=== PATIENT | female | born 1985 | race Caucasian/White ===

== ENCOUNTER → 2016-07-29 | Outpatient (CLI) | payer BC ==
[2016-07-29 09:14] LABS: CH 28.2; CHCM 32.7; HCT 38.8 % (34.0-46.0); HDW 2.53; HGB 12.4 gm/dL (11.4-16.0); MCH 27.8 pg (25.0-35.0); MCV 86.9 fL (80.0-100.0); Mean Platelet Volume 7.5; RBC 4.47 m/uL (3.80-5.40); RDW 13.2 % (11.5-15.5); WBC 6.7 k/uL (3.8-10.6)
[2016-07-29 09:48] LABS: Glucose 57 mg/dL (74-99); Non-African American GFR(MDRD) >60 (>60 ml/min/1.73 sqM)
[2016-07-29 10:18] LABS: Hepatitis B Surface Ag Index 0.08
[2016-07-30 07:44] LABS: HIV-1/HIV-2 Ab Screen NONREAC (NON REAC)
== END ==
LOC: LABWHC1 08:45
PROVIDERS: ATTEND Obstetrics & Gynecology
DX: O26.811 Pregnancy related exhaustion and fatigue, first trimester (principal); Z3A.00 Weeks of gestation of pregnancy not specified
CPT/HCPCS: 36415; 82565; 82947; 85027; 86762; 86780; 86850; 86900; 86901; 87340; 87389

== ENCOUNTER → 2016-12-08 | Outpatient (CLI) | payer SELFPAY ==
[2016-12-08 09:20] LABS: CHCM 33.1; HCT 35.7 % (34.0-46.0); HGB 11.9 gm/dL (11.4-16.0); MCH 28.4 pg (25.0-35.0); MCHC 33.4 g/dL (31.0-37.0); MCV 85.1 fL (80.0-100.0); RBC 4.19 m/uL (3.80-5.40); RDW 13.2 % (11.5-15.5); WBC 7.5 k/uL (3.8-10.6)
== END | disposition home or self-care (01) ==
LOC: LABWHC1 07:48
PROVIDERS: ATTEND Obstetrics & Gynecology
DX: Z34.82 Encounter for supervision of other normal pregnancy, second trimester (principal)
CPT/HCPCS: 36415; 82950; 85027

== ENCOUNTER 2017-02-01 09:40 | Outpatient (CLI) | payer BC, OTHER ==
--- NOTE | 2017-02-01 11:15 | US ---
EXAMINATION TYPE: US OB BPP wo non-stress DATE OF EXAM: 02/01/2017 COMPARISON: NONE CLINICAL HISTORY: non reactive NST, decreased movement, oligo. Non reactive NST at office and h ospital. Nurse states patient had ultrasound yesterday with oligohydramnios found. EXAM PERFORMED: Transabdominal (TA) BPP PARAMETERS: PRESENTATION: Vertex HEART RATE: 144bpm RHYTHM: Normal TEGAN: 8.95 cm DIAPHRAGM IMAGED: yes BPP SCORIN. Breathin (1 episode of breathing of 30 second duration in 30 minutes of scanning time) 2. Movement: 2 (at least 2 discrete body movements in 30 minutes) 3. Tone: 2 (1 episode of active flexion/extension of limb) 4. TEGAN: 2 (TEGAN index > 5cm) TOTAL SCORE: 8 / 8 IMPRESSION: Biophysical profile score of 8/8 with TEGAN of 8.95 and heart rate of 1 44 bpm.
--- NOTE | 2017-04-19 07:48 | P.MSEPDOC ---
Presenting Problems - Arrival Data Date of Arrival on Unit: 02/01/17 Time of Arrival on Unit: 09:40 Mode of Transport: Portable Medical History - Information : 4 Para: 1 Term: 1 : 0 Abortions: Spontaneous or Elective: 2 Number of Living Children: 1 - Gestational Age Gestational Age by RICK (wks/days): 36 Weeks and 4 Days I agree with the RN Medical Screening Exam: Yes Risk & Benefit of care provided described in d/c instruction: Yes Diagnosis: DECREASED MOVEMENTS, THIRD TRIMESTER, FETUS 1
== END 2017-02-01 11:15 | disposition home or self-care (01) ==
LOC: FBPOP 09:40
PROVIDERS: ATTEND Obstetrics & Gynecology
DX: O36.8131 Decreased fetal movements, third trimester, fetus 1 (principal); Z3A.36 36 weeks gestation of pregnancy
CPT/HCPCS: 59025; 76819

== ENCOUNTER 2017-02-16 19:03 | Outpatient (CLI) | payer BC, OTHER ==
[2017-02-16 19:56] VITALS: BP 138/78; PULSE 84; RESP 16; TEMP 97.1
--- NOTE | 2017-02-20 08:35 | P.MSEPDOC ---
Presenting Problems - Arrival Data Date of Arrival on Unit: 02/16/17 Time of Arrival on Unit: 19:03 Mode of Transport: Ambulatory - Complaint OB-Reason for Admission/Chief Complaint: Possible Onset of Labor Comment: pt c/o contractions every 6 mins. Medical History - Information : 4 Para: 1 Term: 1 : 0 Abortions: Spontaneous or Elective: 2 Number of Living Children: 1 - Gestational Age Gestational Age by RICK (wks/days): 38 Weeks and 5 Days Review of Systems - Review of Systems Constitutional: No problems Breast: No problems ENT: No problems Cardiovascular: No problems Respiratory: No problems Gastrointestinal: No problems Genitourinary: No problems Musculoskeletal: No problems Neurological: No problems Skin: No problems Vital Signs - Temperature Temperature: 97.1 F Temperature Source: Temporal Artery Scan - Pulse Right Pulse Rate: 84 Pulse Assessment Method: Pulse Oximetry - Respirations Respiratory Rate: 16 Oxygen Delivery Method: Room Air O2 Sat by Pulse Oximetry: 99 - Blood Pressure Right Arm Blood Pressure: 138/78 Blood Pressure Mean: 98 Blood Pressure Source: Automatic Cuff Medical Screen Scoring (Pre) - Cervical Exam Dilation: 1-3 cm = 1 Effacement: More than 50% = 2 Membranes: Intact - Uterine Contractions Frequency: N/A Duration: N/A Intensity: N/A - Maternal Vital Signs Maternal Temperature: N/A Maternal Blood Pressure: N/A Signs of Preeclampsia: N/A Maternal Respirations: N/A - Maternal Trauma Maternal Trauma: N/A - Assessment Baseline FHR: 125 Heart Rate - NICHD Category: Category I (Normal) = 0 NST: Reactive Position: N/A Station: N/A - Total Score Total Score (Pre): 3 - Level of Risk Level of Risk: Low (0-5) Physician Notification (Pre) - Physician Notified Physician Notified Date: 02/16/17 Physician Notified Time: 19:32 Physician/Practitioner Notifed:: Dr. Deras Spoke With: Braeden Braun New Order Received: No - Notification Comment Comment: Dr. Deras cleared pt for discharge at this time or pt has option to wait an hour and be rechecked. If no cervical change, pt ok for discharge home at that time. Disposition - Disposition OB Disposition: Discharge to home Discharge Date: 02/16/17 Discharge Time: 20:30 I agree with the RN Medical Screening Exam: Yes Risk & Benefit of care provided described in d/c instruction: Yes Diagnosis: FALSE LABOR AT OR AFTER 37 COMPLETED WEEKS OF GESTATION
== END 2017-02-16 20:30 | disposition home or self-care (01) ==
LOC: FBPOP 19:03
PROVIDERS: ATTEND Obstetrics & Gynecology
DX: O47.1 False labor at or after 37 completed weeks of gestation (principal); Z3A.38 38 weeks gestation of pregnancy
CPT/HCPCS: 59025; 84112; G0463; 99213

== ENCOUNTER 2017-02-17 05:00 | Inpatient (IN) | payer BC, OTHER ==
[2017-02-17] MEDS ORDERED: LIDOCAINE 1% (PF) 10 MG/ML (30 ML SDV) SQ PRN (05:39)
[2017-02-17] MEDS ORDERED: TERBUTALINE 1 MG/ML VIAL SQ PRN (05:39)
[2017-02-17] MEDS ORDERED: OXYTOCIN 10 UNIT/ML 1 ML VIAL IM PRN (05:39)
[2017-02-17] MEDS ORDERED: METHYLERGONOVINE 0.2 MG/ML 1 ML AMP IM PRN (05:39)
[2017-02-17] MEDS ORDERED: CARBOPROST TROMETHAMINE 250 MCG/ML 1 ML AMP IM PRN (05:39)
[2017-02-17] MEDS ORDERED: LACTATED RINGERS 1,000 ML IV SCH (05:45)
[2017-02-17] MEDS ORDERED: OXYTOCIN 20 UNITS/1000 ML NS 1,000 ML IV SCH ×2 (05:45→10:25)
[2017-02-17 05:47] VITALS: BMI 29.5
[2017-02-17 06:11] LABS: Basophils % (A) 0 %; CH 27.9; CHCM 32.4; Eosinophils # (A) 0.1 k/uL (0-0.7); Eosinophils % (A) 1 %; HCT 37.7 % (34.0-46.0); HDW 2.87; Luc # (Auto) 0.12; Luc % (Auto) 2; Lymphocytes # (A) 1.4 k/uL (1.0-4.8); Lymphocytes % (A) 17 %; MCH 27.5 pg (25.0-35.0); MCHC 31.8 g/dL (31.0-37.0); MCV 86.6 fL (80.0-100.0); Monocytes # (A) 0.4 k/uL (0-1.0); Monocytes % (A) 5 %; Neutrophils # (A) 6.2 k/uL (1.3-7.7); Neutrophils % (A) 76 %; RBC 4.35 m/uL (3.80-5.40); RDW 13.8 % (11.5-15.5); WBC 8.1 k/uL (3.8-10.6); WBC (Perox) 8.27
[2017-02-17] MEDS ORDERED: BUTORPHANOL 1 MG/ML 1 ML VIAL IV PRN (06:49)
--- NOTE | 2017-02-17 08:48 | P.HPOB ---
History of Present Illness H&P Date: 02/17/17 Chief Complaint: contractions and spontaneous rupture of membranes this is a 32-year-old female 4 para 1 at 38-6/7 weeks with an estimated date of confinement of 02/24/2017, who presented to labor and delivery with spontaneous rupture membranes at approximate 3 AM with clear fluid noted. She has been feeling contractions since yesterday. care has been with Dr. Abarca and has been uncomplicated per patient. labs: Random glucose-57 Hepatitis B surface antigen-negative Hemoglobin-12.4 Syphilis antibody-negative Rubella-immune Blood type-O+ Antibody screen-negative HIV-nonreactive Obstetrical ultrasound-normal anatomy One hour Glucola-69 Group B streptococcus-negative Obstetrical history: . History of 2 elective terminations and one vaginal delivery at term. Review of Systems Constitutional: Denies chills, Denies fever Eyes: denies blurred vision, denies pain Cardiovascular: Denies chest pain, Denies shortness of breath Respiratory: Denies cough Gastrointestinal: Reports abdominal pain (contractions) Genitourinary: Reports pelvic pain, Reports Musculoskeletal: Reports low back pain Past Medical History Past Medical History: No Reported History History of Any Multi-Drug Resistant Organisms: None Reported Additional Past Surgical History / Comment(s): Breast implants. Past Anesthesia/Blood Transfusion Reactions: Previous Problems w/ Anesthesia Past Psychological History: No Psychological Hx Reported Smoking Status: Never smoker - Past Family History Father Family Medical History: Congestive Heart Failure (CHF) Medications and Allergies Home Medications Medication Instructions Recorded Confirmed Type Pnv No.95/Ferrous Fum/Folic AC 1 each PO DAILY 02/01/17 02/16/17 History [ Multivitamin Tablet] Allergies Allergy/AdvReac Type Severity Reaction Status Date / Time No Known Allergies Allergy Verified 02/17/17 05:38 Exam Osteopathic Statement: *. No significant issues noted on an osteopathic structural exam other than those noted in the History and Physical/Consult. - Vital Signs Vital signs: Vital Signs Temp Pulse Resp BP Pulse Ox 02/17/17 05:35 97.1 F L 69 18 130/70 100 Intake and Output 02/16/17 02/17/17 02/17/17 22:59 06:59 14:59 Other: # Voids 1 Weight 78.018 kg HEENT: Within normal limits Heart: Regular rate and rhythm Lungs: Clear to auscultation bilaterally Abdomen: Cervix: 4 cm 100% -1 station with spontaneous rupture membranes and positive amnisure heart tones: Reactive Contractions: Every 2 minutes Extremities: Negative Homans Results Result Diagrams: 02/17/17 05:35 Assessment and Plan (1) 38 weeks gestation of Current Visit: Yes Status: Acute Code(s): Z3A.38 - 38 WEEKS GESTATION OF SNOMED Code(s): 58407107 (2) Spontaneous rupture of membranes Current Visit: Yes Status: Acute Code(s): DLT5871 - SNOMED Code(s): 173688319 Plan: Admission for labor. Expectant management.
--- NOTE | 2017-02-17 08:49 | P.PROBDLV ---
Vaginal Delivery Note - . Vaginal Delivery Note: The patient progressed to complete dilation fairly rapidly after 1 dose of Stadol. She pushed for a couple pushes and 's head came to a crown. Infant's head delivered across the perineum followed by the anterior shoulder and then the remainder the . Nose and mouth were bulb suctioned after delivery and was placed on mother's abdomen. Cord was clamped and cut and infant was taken to warmer for evaluation. A viable female infant is noted with scores of 9 at 1 minute and 9 at 5 minutes. weight is pending at this time. Placenta delivered shortly thereafter, intact, with a three-vessel cord. Uterus contracted well after oxytocin was given and uterine massage was carried out. Inspection of the perineum revealed a small second- degree perineal laceration. This area was anesthetized with 1% lidocaine and then sutured with 3-0 Vicryl suture in a running locked fashion. Estimated blood loss is approximately 100 mL's. Both mother and infant are in stable condition.
[2017-02-17] MEDS ORDERED: ACETAMINOPHEN TAB 325 MG TAB PO PRN (10:25)
[2017-02-17] MEDS ORDERED: WITCH HAZEL 1 EACH MED..PAD TOPICAL PRN (10:25)
[2017-02-17] MEDS ORDERED: ZOLPIDEM 5 MG TAB PO PRN (10:25)
[2017-02-17] MEDS ORDERED: HYDROCORTISONE 2.5% RECTAL CREAM 30 GM TUBE RECTAL PRN (10:25)
[2017-02-17] MEDS ORDERED: SIMETHICONE 80 MG CHEWABLE PO PRN (10:25)
[2017-02-17] MEDS ORDERED: diphenhydrAMINE 25 MG CAP PO PRN (10:25)
[2017-02-17] MEDS ORDERED: diphenhydrAMINE 50 MG CAP PO PRN (10:25)
[2017-02-17] MEDS ORDERED: LANOLIN CREAM 5 GM TUBE TOPICAL PRN (10:25)
[2017-02-17] MEDS ORDERED: diphenhydrAMINE 50 MG/ML 1 ML VIAL IVP PRN ×2 (10:25)
[2017-02-17] MEDS ORDERED: BENZOCAINE/MENTHOL SPRAY 1 GM/SPRAY AEROSOL TOPICAL PRN (10:25)
[2017-02-17] MEDS: IBUPROFEN 600 MG TAB PO PRN ×3 (10:34→23:33)
[2017-02-17] MEDS: Acetaminophen-Codeine 300-30mg TAB PO PRN ×2 (20:39→21:15)
[2017-02-18] MEDS: SENNOSIDES-DOCUSATE SODIUM 1 EACH TAB PO SCH ×2 (00:34→11:42)
[2017-02-18] MEDS: Acetaminophen-Codeine 300-30mg TAB PO PRN (02:57)
--- NOTE | 2017-02-18 06:41 | P.PNOBGVD ---
Subjective - Subjective Patient reports: Reports appetite normal, Reports voiding normally, Reports pain well controlled, Reports ambulating normally : doing well Objective - Latest Vital Signs Latest vital signs: Vital Signs Temp Pulse Resp BP Pulse Ox 02/18/17 00:00 98.6 F 73 18 126/76 100 02/17/17 20:00 98.3 F 64 18 131/75 98 02/17/17 16:00 98.4 F 72 16 137/80 02/17/17 12:00 97.3 F L 80 16 133/70 02/17/17 10:38 76 18 124/73 02/17/17 10:08 83 18 123/82 02/17/17 09:38 81 18 122/74 02/17/17 09:23 97.0 F L 72 18 115/65 02/17/17 09:08 83 18 121/60 02/17/17 08:53 20 02/17/17 08:38 89 20 123/72 Intake and Output 02/17/17 02/17/17 02/18/17 14:59 22:59 06:59 Intake Total 1000 Balance 1000 Intake: Intake, IV Titration 1000 Amount Oxytocin 20 Units/1000 ml 1000 Ns 1,000 ml @ 1 MILLIUNIT/MIN 3 mls/hr IV .Q24H JAXON Rx#:[id number] Other: # Voids 1 2 1 - Exam Lungs: bilateral: normal Chest: Normal S1, Normal S2 Extremities: Present: normal Abdomen: Present: normal appearance, soft Uterus: Present: normal, firm Assessment and Plan (1) Normal labor and delivery Narrative/Plan: day #1. Patient is resting without complaints wishes to go home. Vital signs are stable and she is afebrile. Uterus is firm nontender. Patient is having normal lochia. My impression this is a normal course. Plan is to continue routine care and patient will be discharged home later this morning. Current Visit: Yes Status: Acute Code(s): O80 - ENCOUNTER FOR FULL-TERM UNCOMPLICATED DELIVERY SNOMED Code(s): 53859831
--- NOTE | 2017-02-18 06:44 | P.DS ---
Providers Date of admission: 02/17/17 05:28 Expected date of discharge: 02/18/17 Attending physician: Tj Abarca Primary care physician: Tj Abarca - Discharge Diagnosis(es) (1) Normal labor and delivery Current Visit: Yes Status: Acute Hospital Course: Please see dictated H&P and delivery note per Dr. Deras. Brief summary this is a 32-year-old 2 para [address] Garsia in active labor. Patient goes on to have a vaginal delivery viable female . On day #1 patient wishes to go home was felt be stable for discharge home follow up with Dr. Balderas in approximately 6 weeks. Procedures: Normal vaginal delivery. Patient Condition at Discharge: Good Plan - Discharge Summary New Discharge Prescriptions: New Acetaminophen-Codeine 300-30mg [Tylenol #3] 1 - 2 tab PO Q4H PRN #30 tablet PRN Reason: Pain Ibuprofen [Motrin] 600 mg PO Q6HR PRN #40 tab PRN Reason: Mild Pain Or Fever >= 100.5 No Action Pnv No.95/Ferrous Fum/Folic AC [ Multivitamin Tablet] 1 each PO DAILY Discharge Medication List Pnv No.95/Ferrous Fum/Folic AC [ Multivitamin Tablet] 1 each PO DAILY [History] Acetaminophen-Codeine 300-30mg [Tylenol #3] 1 - 2 tab PO Q4H PRN #30 tablet [Rx] Ibuprofen [Motrin] 600 mg PO Q6HR PRN #40 tab 02/17/17 [Rx] Follow up Appointment(s)/Referral(s): Tj Abarca DO [Primary Care Provider] - 6 Weeks Patient Instructions/Handouts: Vaginal Delivery (DC) Activity/Diet/Wound Care/Special Instructions: No intercourse or anything per vagina for 6 weeks. Please call if any fever, chills, excessive vaginal bleeding, and/or abdominal pain. Discharge Disposition: HOME SELF-CARE
[2017-02-18 07:12] LABS: Basophils % (A) 0 %; CH 27.6; CHCM 32.6; Eosinophils # (A) 0.1 k/uL (0-0.7); Eosinophils % (A) 1 %; HCT 34.9 % (34.0-46.0); HDW 2.86; HGB 11.2 gm/dL (11.4-16.0); Luc % (Auto) 1; Lymphocytes # (A) 2.3 k/uL (1.0-4.8); Lymphocytes % (A) 22 %; MCH 27.4 pg (25.0-35.0); MCHC 32.1 g/dL (31.0-37.0); MCV 85.4 fL (80.0-100.0); Mean Platelet Volume 7.3; Monocytes # (A) 0.5 k/uL (0-1.0); Monocytes % (A) 5 %; Neutrophils # (A) 7.4 k/uL (1.3-7.7); Neutrophils % (A) 71 %; RBC 4.08 m/uL (3.80-5.40); RDW 13.9 % (11.5-15.5); WBC 10.3 k/uL (3.8-10.6); WBC (Perox) 9.94
[2017-02-18] MEDS: IBUPROFEN 600 MG TAB PO PRN (07:20)
[2017-02-18 09:40] VITALS: BP 138/88; PULSE 75; RESP 20; TEMP 98
== END 2017-02-18 11:15 | disposition home or self-care (01) | DRG 775 ==
LOC: FBPOP 05:00 → 4FBP 05:28
PROVIDERS: ADMIT Obstetrics & Gynecology; ATTEND Obstetrics & Gynecology
PROC: 10E0XZZ Delivery of Products of Conception, External Approach (ICD-10-PCS; principal; 2017-02-17)
PROC: 0KQM0ZZ Repair Perineum Muscle, Open Approach (ICD-10-PCS; 2017-02-17)
DX: O70.1 Second degree perineal laceration during delivery (principal); Z37.0 Single live birth; Z3A.38 38 weeks gestation of pregnancy; Z98.82 Breast implant status; Z82.49 Family history of ischemic heart disease and other diseases of the circulatory system
CPT/HCPCS: 85025; 88307